=== PATIENT | male | born 2000 | race Caucasian/White ===

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

== ENCOUNTER 2024-07-31 18:22 | Emergency (ER) | payer OTHER, BC, SELFPAY ==
[2024-07-31 18:46] VITALS: BP 126/76; PULSE 72; RESP 20; TEMP 36.7
--- NOTE | 2024-07-31 19:07 | ED_ITS ---
HPI - General Adult General Chief complaint: Abdominal Pain Stated complaint: right side pain Time Seen by Provider: 07/31/24 19:00 Source: patient Mode of arrival: ambulatory Limitations: no limitations History of Present Illness HPI narrative: 24 year old male presents to [facility] care with complaints of having right upper abdomen quadrant abdominal discomfort which started at 1430 today but states that his pain has decreased since it initially started. Patient reports that he has not had any nausea or vomiting or any diarrhea,Patient reports that he has not had any alcohol intake for a week usually drinks a few beers mainly on the weekend. Patient reports that he had eggs for breakfast this morning. Patient is obese with rounded abdomen does have some discomfort to right upper abdomen on palpation, no liver enlargement noted on examination or any pain on palpation over liver. Patient reports that his boss wanted him to go get checked out. MD complaint: right upper abdomen discomfort Location: abdomen (right upper abdomen) Severity scale (1-10): 7 (reported initially now rates at 4) Quality: aching Pain Consistency: intermittent and colicky Treatments prior to arrival: none Related Data Allergies Allergy/AdvReac Type Severity Reaction Status Date / Time clindamycin Allergy Unknown SIXTO Verified 07/31/24 18:42 SYNDROME erythromycin base Allergy Unknown Unknown Verified 07/31/24 18:42 ketamine Allergy Unknown Unknown Verified 07/31/24 18:42 morphine Allergy Unknown Unknown Verified 07/31/24 18:42 vancomycin Allergy Unknown SIXTO Verified 07/31/24 18:42 SYNDROME Contrast Media Allergy Unknown Unknown Uncoded 07/31/24 18:42 MIDAZOLAM HCL Allergy Unknown Unknown Uncoded 07/31/24 18:42 Review of Systems Review of Systems: CONSTITUTIONAL: Denies fever, chills, or sweats. EYES: Denies visual changes, redness, or discharge. ENT: Denies rhinorrhea, congestion, sore throat, or otalgia. CARDIOVASCULAR: Denies chest pain, palpitations, or edema. RESPIRATORY: Denies cough or dyspnea. GASTROINTESTINAL: Reports right upper abdominal pain, denies any nausea, vomiting, or diarrhea GENITOURINARY: Denies dysuria or hematuria. SKIN: Denies rash or itching. MUSCULOSKELETAL: Denies back pain, joint pain, or myalgia. NEUROLOGIC: Denies headache, numbness, or weakness. PSYCHIATRIC: Denies anxiety or depression. All systems reviewed & are unremarkable except as noted in HPI and below PMFSH Past Medical History Medical History (Updated 08/01/24 @ 16:35 by Blossom Peoples NP) Atypical chest pain ADHD (attention deficit hyperactivity disorder) Dog bite of face No pertinent past medical history Surgical History Surgical History (Updated 08/01/24 @ 16:32 by Blossom Peoples NP) History of placement of ear tubes History of ankle surgery orthopedic repair for fracture No pertinent past surgical history Social History Social History (Updated 07/31/24 @ 19:09 by Blossom Peoples NP) Smoking status: Never smoker Alcohol intake: current Alcohol use details: Social Substance use: never Living arrangements: with family Gender identity (if verbalized by the patient): Male Comments At time of signature, agree with nursing past medical, surgical, social and family history. There is no relevant family history pertinent to the presenting complaint Exam Narrative: GENERAL: Well-appearing, well-nourished,obese and in no acute distress. HEAD: Normocephalic, atraumatic. EYES: PERRLA and EOMI. ENT: Nares clear, no rhinorrhea or epistaxis. Mucous membranes moist. NECK: Supple.no lymphadenopathy CHEST: Clear to auscultation. No respiratory distress. no cough noted SAO2 98% on room air HEART: Regular rate and rhythm. No murmur heard. Normal peripheral pulses. ABDOMEN: Soft, tender on palpation to area in right upper abdomen, nondistended, abdomen is rounded,normal active bowel sounds. no tenderness over liver with no enlargement on palpation Patient reports initial pain was a 7/10 but has decreased initial episode. Patient denies any nausea vomiting or diarrhea. EXTREMITIES: Normal range of motion. No edema. SKIN: Warm, dry, no rash. NEURO: No focal deficits. Alert and oriented x3. Course Course Emergency Course: Patient is aware of diagnosis, understands and agrees to treatment plan.? Anticipatory guidance given.? Patient agrees to follow-up as directed and is aware of reasons to seek care at the emergency department. Portions of this record may have been created with voice recognition software Level of Care: Express Care Visit Vital Signs Vital signs: Vital Signs Temperature 36.7 C 07/31/24 18:46 Pulse Rate 72 07/31/24 18:46 Respiratory Rate 20 07/31/24 18:46 Blood Pressure 126/76 07/31/24 18:46 Temperature 36.7 C 07/31/24 18:46 Pulse Rate 72 07/31/24 18:46 Respiratory Rate 20 07/31/24 18:46 Blood Pressure 126/76 07/31/24 18:46 Reviewed Medical Decision Making MDM Narrative Medical decision making narrative: Exam findings and imaging show no acute concerns or changes; patient is non- toxic appearing and is in no distress.? Patient is appropriate for outpatient treatment and follow-up Patient instructed to go to the ED if pain increases or any new or increased symptoms Differential Diagnosis Differential Diagnosis: right abdominal pain, gall bladder disease,cholelithiasis, cholecystitis, IBS, gastritis, biliary colic Medical Records Medical records reviewed: Yes I reviewed the external patient's medical records. Vital Signs Vital Signs: Vital Signs Temperature 36.7 C 07/31/24 18:46 Pulse Rate 72 07/31/24 18:46 Respiratory Rate 20 07/31/24 18:46 Blood Pressure 126/76 07/31/24 18:46 Temperature 36.7 C 07/31/24 18:46 Pulse Rate 72 07/31/24 18:46 Respiratory Rate 20 07/31/24 18:46 Blood Pressure 126/76 07/31/24 18:46 reviewed Critical Care Time Critical Care Time Critical Care Time: No Discharge Plan Discharge Clinical Impression: Abdominal pain, acute, right upper quadrant Patient Disposition: Home Condition: Stable Instructions: Antibiotic Form, Abdominal Pain (ED) Additional Instructions: Avoid fried, greasy, fatty, fried foods Avoid caffeine, nicotine, and alcohol Return to your regular diet in the next 3-4 days Medication as directed for nausea and vomiting Sometimes ibuprofen/Aleve can cause increased stomach upset Follow-up with her PCP if continued problems or uncontrolled pain make appointment for follow-up testing and labs The pain is severe or increases in intensity go directly to the emergency room If your symptoms persist, change or worsen significantly before you can contact your personal physician then please, without delay, go to the emergency department for further evaluation. Follow-up with PCP in 7-10 days or sooner if needed Follow up with PCP soon in regards to your blood pressure which is elevated above threshold for referral. Blood pressure above 120/80 may indicate pre- hypertension. minimal systolic elevation 126/76 Patient Language: [place] Prescriptions: New pantoprazole [Protonix] 40 mg tablet,delayed release (DR/EC) 40 mg PO HS Qty: 20 0RF ondansetron 4 mg tablet,disintegrating 4 mg PO Q6H PRN (Reason: nausea and vomiting) Qty: 14 0RF Follow-up/Referrals: UNKNOWN,DOCTOR [Primary Care Provider] - Time of Disposition: 19:12 Quality [place] Coma Scale Eyes: Open Verbal: Oriented and Alert Motor: Follows Commands [place] Coma Total Score: 15
== END 2024-07-31 19:20 | disposition home or self-care (01) ==
PROVIDERS: Emergency Provider Registered Nurse
DX: R10.11 Right upper quadrant pain (principal)
CPT/HCPCS: 99213; G0463